=== PATIENT | male | born 1985 ===

== ENCOUNTER 2022-08-29 16:12 | Outpatient (REF) | payer MEDICAID, SELFPAY ==
[2022-08-31 10:21] LABS: Syphilis Serology (RPR) Negative (Negative)
[2022-08-31 10:29] LABS: HIV-1/2 Ag & Ab Screen Negative (Negative)
[2022-08-31 10:48] LABS: Hepatitis A Antibody IgM Negative (Negative); Hepatitis B Core Antibody Negative (Negative); Hepatitis B surface Ag Negative (Negative); Hepatitis C Ab w Rflx HCV PCR Negative (Negative)
[2022-08-31 13:13] LABS: Chlamydia Result Negative (Negative); GC Result Negative (Negative)
[2022-09-04 09:00] LABS: HBs Antibody, Quant 73.9 mIU/mL (See Note); Hepatitis B Surface Ab Positive (See Note)
== END 2022-08-29 16:13 | disposition home or self-care (01) ==
LOC: NCHCN 16:12
PROVIDERS: Visit Provider Nurse Practitioner Family
DX: Z11.3 Encounter for screening for infections with a predominantly sexual mode of transmission (principal)
CPT/HCPCS: 86704; 86706; 86709; 86803; 87340; 87389; 87491; 87591; 86592